=== PATIENT | female | born 1945 | race Caucasian/White ===

== ENCOUNTER 2023-02-05 13:10 | Inpatient (IN) | payer OTHER, MEDICAID ==
[~2023-02-05] VITALS: Ht 153.7 cm; Wt 81.9 kg
[2023-02-05 13:11] VITALS: BP_SYST 134
--- NOTE | 2023-02-05 13:15 | NUR ---
Placed in room 05 . Placed on hall monitor, blood pressure machine and pulse oximeter. To gown for exam. Side rails up. Report given to ELISHA MORRISON.
--- NOTE | 2023-02-05 13:57 | NUR ---
PT IS YELLING AT STAFF, REFUSING TO HAVE BLOOD DRAW. DR MYLES MADE AWARE. PT IS ALERT TO NAME ONLY, CONFUSED AND THREATNING TO HIT STAFF IS TOUCHED FOR BLOOD WORK.
--- NOTE | 2023-02-05 14:09 | NUR ---
DR MYLES IN ROOM FOR EXAM
[2023-02-05] MEDS ORDERED: NACL 0.9% 1,000 ML IV ONE (14:15)
[2023-02-05] MEDS ORDERED: LORazepam 2 MG/ML VIAL IM ONE (14:30)
[2023-02-05] MEDS ORDERED: HALOPERIDOL LACTATE 5 MG/ML VIAL IM ONE (14:30)
--- NOTE | 2023-02-05 14:49 | NUR ---
MEDICATED PT WITH INJECTIONS RDERED WITH ASSISTANCE OF EMT RACHEL AND RN CHRISTY. PT KEPT VERBALLY THREATNEING AND ATTEMPTED TO SLAP MY HANDS WHEN ATTEMPTING TO MEDICATE. VERBAL DEESCALATION PROVIDED. SAFETY PRECAUTIONS IN PLACE, PT ON TELE MONITOR. WILL CONT TO MONITOR.
[2023-02-05 15:21] LABS: BASOPHILS # (AUTO) 0.1 K/uL (0.0-0.2); BASOPHILS % (AUTO) 0.5 % (0.0-2.0); HEMATOCRIT 39.7 % (36-48); HEMOGLOBIN 13.2 g/dL (12.0-16.0); LYMPHOCYTES # (AUTO) 1.2 K/uL (1.0-5.5); MEAN CORPUSCULAR HEMOGLOBIN 32 pg (27-31); MEAN CORPUSCULAR HGB CONC 33 % (32-36); MEAN CORPUSCULAR VOLUME 95 fL (79.0-98.0); MONOCYTES % (AUTO) 7.6 % (1.7-9.3); NEUTROPHILS # (AUTO) 10.8 K/uL (1.8-7.7); NEUTROPHILS % (AUTO) 82.9 % (40.0-70.0); PLATELET COUNT (AUTO) 363 K/uL (130-430); RED BLOOD CELL COUNT(AUTO) 4.18 MIL/uL (4.2-6.2); RED CELL DISTRIBUTION WIDTH 13.6 % (9.0-15.0)
[2023-02-05 15:29] LABS: CALCIUM 9.1 mg/dL (8.4-11.0); CHLORIDE 98 mmol/L (98-107); CREATININE 1.08 mg/dL (0.55-1.30); GLUCOSE 363 mg/dL (70-99); UREA NITROGEN, BLOOD 22 mg/dL (8-21)
[2023-02-05 15:32] LABS: INR 1.1 (0.8-1.2); PROTHROMBIN TIME 10.9 SECS (9.5-12.5)
[2023-02-05 15:36] LABS: ALANINE AMINOTRANSFERASE 25 U/L (12-78); ALBUMIN 3.4 g/dL (3.4-4.8); ALCOHOL, BLOOD 6 mg/dL (<10); ASPARTATE AMINOTRANSFERASE 30 U/L (10-37); TOTAL BILIRUBIN 0.5 mg/dL (0.0-1.0)
[2023-02-05 15:48] LABS: ANION GAP 12 (5-15)
--- NOTE | 2023-02-05 17:26 | NUR ---
POC BG 245. AWARE.
[2023-02-05] MEDS ORDERED: LORazepam 2 MG/ML VIAL IVP PRN (18:00)
[2023-02-05] MEDS ORDERED: DEXTROSE 50% JECT 50 ML DISP.SYRIN IVP PRN (18:00)
[2023-02-05] MEDS ORDERED: ACETAMINOPHEN 325 MG TABLET PO PRN ×2 (18:00→18:15)
[2023-02-05] MEDS ORDERED: DOCUSATE SODIUM 100 MG CAPSULE PO PRN (18:00)
[2023-02-05] MEDS ORDERED: POTASSIUM CHLORIDE 20 MEQ TAB.PRT.SR PO PRN (18:00)
[2023-02-05] MEDS ORDERED: MAGNESIUM SULFATE 50 ML IV PRN (18:00)
[2023-02-05] MEDS ORDERED: ONDANSETRON HCL 4 MG/2 ML VIAL IVP PRN (18:00)
[2023-02-05] MEDS ORDERED: INSULIN LISPRO SLIDING SCALE 100 UNITS/ML, 3 ML VIAL (humaLOG) SUBCUT PRN (18:00)
[2023-02-05] MEDS ORDERED: MUPIROCIN 2% TOPICAL OINTMENT 22 GM NS PRN (18:00)
[2023-02-05] MEDS ORDERED: MORPHINE 2 MG/ML INJ. SYRINGE IVP PRN ×2 (18:00)
[2023-02-05 18:10] LABS: BILIRUBIN,URINE NEGATIVE (NEGATIVE); BLOOD, URINE NEGATIVE (NEGATIVE); CLARITY/URINE CLEAR (CLEAR); COLOR,URINE YELLOW (YELLOW); GLUCOSE,URINE 3+ (NEGATIVE); KETONES,URINE TRACE (NEGATIVE); LEUKOCYTE ESTERASE ,URINE NEGATIVE (NEGATIVE); NITRITE, URINE NEGATIVE (NEGATIVE); PROTEIN URINE NEGATIVE (NEGATIVE); UROBILINOGEN,URINE 0.2 (0.2-1.0)
[2023-02-05 18:16] LABS: BACTERIA,URINE RARE /HPF (None Seen); MUCUS,URINE None Seen /LPF (None Seen); RBC,URINE NONE SEEN /HPF (0-3); WBC,URINE 0-3 /HPF (0-3)
[2023-02-05 18:30] LABS: BARBITURATE, URINE NEGATIVE (NEG <=200); BENZODIAZEPINE, URINE NEGATIVE (NEG <=150); CANNABINOID, URINE NEGATIVE (NEG <=50); COCAINE, URINE NEGATIVE (NEG <=150); METHAMPHETAMINES SCREEN,URINE NEGATIVE (NEG <=500); PHENCYCLIDINE SCREEN,URINE NEGATIVE (NEG <=25); UR TRICYCLIC ANTIDEPRESSANTS NEGATIVE (NEG <=300); URINE AMPHETAMINE NEGATIVE (NEG <=500); URINE METHADONE NEGATIVE (NEG <=200); URINE OXYCODONE SCREEN NEGATIVE (NEG <=100); URINE PROPOXYPHENE SCREEN NEGATIVE (NEG <=300)
[2023-02-05] MEDS ORDERED: cefTRIAXone 1 GM IVPB PREMIX 50 ML IV ONE (18:30)
[2023-02-05 18:31] LABS: OPIATE, URINE POSITIVE (NEG <=100)
--- NOTE | 2023-02-05 20:13 | NUR ---
Admit bed requested Patient will be admitted to care of . Admitted to MED SURGE unit. Diagnosis [facility] Inpatient (Yes or No) Y Observation (Yes or No) N Orientation concerns or request close to nursing station (Yes or No) N Covid Status PENDING On vent or bipap N Isolation requirements N Needs a sitter N From Home (Yes or if No enter name of facility) N Requires Dialysis (Yes or No) N Med Rec Completed (Yes of No) Y
--- NOTE | 2023-02-05 20:24 | NUR ---
UNABLE TO OBTAIN MED REQ. NO FAMILY AND PT UNABLE TO GIVE INFO
[2023-02-05 21:42] VITALS: BP_SYST 110
--- NOTE | 2023-02-05 21:42 | NUR ---
ADMISSION: The patient, MCKENZIE GUTIERRES, 77 y/o, F admitted by ERNST CALLOWAY MD, was given written information regarding hospital policies, unit procedures and contact persons. Valuables were checked and DOCUMENTED.
--- NOTE | 2023-02-05 22:03 | NUR ---
Patient will be admitted to care of . Admitted to MED SURGE unit. Will go to room 121A. Belongings list completed. Complete and up to date summary report printed. SBAR report to be given at bedside with opportunity for questions.
--- NOTE | 2023-02-05 22:30 | NUR ---
INITIAL NOTE AT INITIAL ASSESSMENT, PATIENT IS RESTING IN BED, STABLE, NO SIGNS OF RESPIRATORY DISTRESS. PATIENT IS CONFUSED BUT COOPERATIVE TO CARE. SHE VERBALIZES NO PAIN. PLAN OF CARE FOR THE EVENING IS COMMUNICATED WITH THE PATIENT. PATIENT IS UNABLE TO DEMONSTRATE BACK CORRECT USAGE OF CALL LIGHT DUE TO COGNITIVE IMPAIRMENT; SHE WILL BE KEPT IN A ROOM WITHIN EYE SITE OF THE NURSING STATION FOR CLOSER MONITORING. FALL, SAFETY, AND ASPIRATION, AND PRECAUTIONS WILL BE TAKEN THROUGHOUT THE SHIFT. PATIENT WILL BE TURNED [id number] THROUGHOUT THE SHIFT.
--- NOTE | 2023-02-05 23:10 | NUR ---
PAGED DR. BRODIE CALLOWAY PAGELisa PER PROTOCOL FOR SEPSIS RISK INTERVENTION AND REQUEST ORDER FOR [facility]. CALL BACK NUMBER GIVEN. AWAITING CALL BACK.
--- NOTE | 2023-02-05 23:20 | NUR ---
WOUND CARE/ HYGIENE CARE WOUND CARE AND HYGIENE CARE PROVIDED AT THIS TIME. PATIENT IS INCONTINENT; PURE WICK PLACED. PATIENT TOLERATED WELL. FRESH LINENS PROVIDED. SHE IS REPOSITIONED FOR COMFORT.
--- NOTE | 2023-02-06 00:30 | NUR ---
PAGED DR. BRODIE CALLOWAY PAGELisa PER PROTOCOL FOR SEPSIS RISK INTERVENTION AND REQUEST ORDER FOR [facility]. CALL BACK NUMBER GIVEN. AWAITING CALL BACK.
--- NOTE | 2023-02-06 02:10 | NUR ---
ROUNDS PATIENT IS SLEEPING, STABLE, NO SIGNS OF RESPIRATORY DISTRESS. BED IS LOCKED, ALARMED, AND AT THE LOWEST LEVEL.
[2023-02-06 02:14] VITALS: BP_SYST 124
--- NOTE | 2023-02-06 05:15 | NUR ---
HYGIENE CARE HYGIENE CARE PROVIDED AT THIS TIME. PATIENT IS INCONTINENT; PURE WICK IS IN PLACE. PATIENT TOLERATED WELL. FRESH LINENS PROVIDED. SHE IS REPOSITIONED FOR COMFORT.
--- NOTE | 2023-02-06 06:03 | NUR ---
CLOSING NOTE PATIENT SLEPT WELL THROUGHOUT THE NIGHT. AT THIS TIME, PATIENT IS RESTING IN BED, STABLE, NO SIGNS OF RESPIRATORY DISTRESS. CALL LIGHT WITHIN REACH. BED IS LOCKED, ALARMED, AND AT THE LOWEST LEVEL. FALL, SAFETY, AND ASPIRATION PRECAUTIONS HAVE BEEN IN PLACE THROUGHOUT THE SHIFT. WILL CONTINUE TO MONITOR UNTIL REPORT IS GIVEN AT BEDSIDE TO AM NURSE.
[2023-02-06 06:49] LABS: BASOPHILS % (AUTO) 0.1 % (0.0-2.0); EOSINOPHILS % (AUTO) 0.1 % (0.0-4.0); HEMATOCRIT 38.3 % (36-48); HEMOGLOBIN 12.9 g/dL (12.0-16.0); LYMPHOCYTES % (AUTO) 10.8 % (20.5-51.5); MEAN CORPUSCULAR HEMOGLOBIN 32 pg (27-31); MEAN CORPUSCULAR HGB CONC 34 % (32-36); MEAN CORPUSCULAR VOLUME 95 fL (79.0-98.0); MONOCYTES # (AUTO) 0.8 K/uL (0.0-1.0); MONOCYTES % (AUTO) 8.7 % (1.7-9.3); NEUTROPHILS # (AUTO) 7.5 K/uL (1.8-7.7); NEUTROPHILS % (AUTO) 80.3 % (40.0-70.0); PLATELET COUNT (AUTO) 316 K/uL (130-430); RED BLOOD CELL COUNT(AUTO) 4.03 MIL/uL (4.2-6.2); RED CELL DISTRIBUTION WIDTH 13.7 % (9.0-15.0); WHITE BLOOD COUNT (AUTO) 9.3 K/uL (4.8-10.8)
[2023-02-06 07:26] LABS: ANION GAP 8 (5-15); CALCIUM 8.6 mg/dL (8.4-11.0); CHLORIDE 106 mmol/L (98-107); CREATININE 0.73 mg/dL (0.55-1.30); GLUCOSE 155 mg/dL (70-99); UREA NITROGEN, BLOOD 14 mg/dL (8-21)
[2023-02-06 08:00] VITALS: BP_SYST 139
[2023-02-06 11:26] VITALS: BP_SYST 140
[2023-02-06 15:10] VITALS: BP_SYST 138
[2023-02-06] MEDS ORDERED: cefTRIAXone 1 GM IVPB PREMIX 50 ML IV SCH (18:00)
[2023-02-06 20:22] VITALS: BP_SYST 108
--- NOTE | 2023-02-07 05:51 | NUR ---
no acute distress noted overnight n. pt refused ADLs
--- NOTE | 2023-02-07 07:46 | NUR ---
pt refused BSC, endorsed care to am RN. no distress overnight
[2023-02-07 08:00] VITALS: BP_SYST 121
[2023-02-07 11:32] VITALS: BP_SYST 108
--- NOTE | 2023-02-07 11:40 | NUR ---
Shift Summary: patient is AAOX3. vitals are stable. patient refused morning blood draw. patient educated on importance of getting blood draw done. patient continues to refuse. patients blood sugar above 200. patient refused insulin after multiple attempts of educating patient of risk of hyperglycemia. patient continues to refuse treatment. will continue to monitor patient. patient educated on importance of using call light for assistance from staff due to patient being high risk for falls. call light within reach, bed set to low, locked, and alarm on. Addendum: 02/07/23 at 1422 by [facility] ELISHA Stein RN informed patient of discharge plan. patient states she doesnt know who will take care of her upon discharge. rn case manager called. left msg on voicemail due to no answer. will attempt to call rn case manager again soon. Addendum: 02/07/23 at 1528 by [facility] ELISHA Stein RN spoke to rn case manager regarding patients discharge plan. patient unable to be discharge safely at the moment per rn case manager. Addendum: 02/07/23 at 1659 by [facility] ELISHA Stein RN patient continues to refuse treatment plan. educated patient on importance of monitoring glucose levels. patient continues to refuse. patient unable to provide caregiver contact information. Addendum: 02/07/23 at 1713 by [facility] ELISHA Stein RN Yeimi Dozier arrived bedside. updated Tasia on discharge plan. Tasia stated she does not feel comfortable taking patient home. updated rn case manager regarding Tasia being bedside. physician paged to request discharge orders to be change to SNF placement. waiting for call back. Tasia contact number is [phone].
--- NOTE | 2023-02-07 15:00 | NUR ---
CM: faxed referral to [facility] fax # [phone], tel # [phone] attn Imani, she will call back after verify ins. Informed that pt is alert/confused, lives in apt alone, no personal care aide and ph# . Pt is unable to give info. see nurse's notes.
[2023-02-07 15:14] VITALS: BP_SYST 110
--- NOTE | 2023-02-07 17:18 | NUR ---
CM: per Yong RN: child care team lead/Tasia # [phone] came in to visit the pt. She that the pt lives alone, and she provided care for couple hour /day as needed. Yong will notify dr. Wasserman and to get the dc order to snf instead since this is unsafe to send pt home due to her mental status which is more confused per Tasia. SNF: sent referral to [facility], pt is accepted per [place]. Pending bed assignment and final dc order. Addendum: 02/07/23 at 1743 by Timo Fonseca RN to [place] room 7A , report # [phone]. [place] arranged /van to pick and shovel man at 1830. dr. Wasserman / ELISHA [place] aware.
[2023-02-07 17:52] VITALS: BP_SYST 110
--- NOTE | 2023-02-07 18:42 | NUR ---
Discharge Summary: patient is AAOX2-3. vitals are stable. PIV removed. patient and Tasia, Friend, given discharge instructions regarding activity, diet, follow up appointment, medication and facility. patient and Tasia state they have no questions or concerns upon discharge. patient and Tasia state they have all of patients personal belongings present with them upon discharge. Report given to ELISHA Chavez at [facility]. Kathy states she has no questions or concerns upon receiving report. bedside report given to Bernadette Hurley. Xavi states he has no questions or concerns upon picking patient up. patient leaving unit on wheelchair with assistance from Bernadette Hurley.
== END 2023-02-07 18:42 | DRG 640 ==
LOC: SED 13:10 → SMU 17:57
PROVIDERS: ADMIT Family Medicine; ATTEND Family Medicine
DX: E86.0 Dehydration (principal); G93.41 Metabolic encephalopathy; N17.0 Acute kidney failure with tubular necrosis; D72.829 Elevated white blood cell count, unspecified; M54.50 Low back pain, unspecified; Z20.822 Contact with and (suspected) exposure to COVID-19; E11.9 Type 2 diabetes mellitus without complications
CPT/HCPCS: 36415; 70450-TC; 71045; 76376; 80048; 80053; 80307; 81000; 82962; 83735; 84484; 85025; 85610-TC; 85730-TC; 93005; 96361; 96365; 96372; 97116-GP; 97163-GP; 99285; G0482; J0696; J1630; J2060